=== PATIENT | female | born 1990 | race Two or more races ===

== ENCOUNTER 2020-06-11 01:52 | Emergency (ER) | payer MEDICAID ==
[~2020-06-11] VITALS: Ht 167.6 cm; Wt 62.9 kg
[~2020-06-11 01:52] MED LIST: IBUP-1222 PO; OXYC-302 PO; PREN1TAB69 PO
--- NOTE | 2020-06-11 03:03 | NUR ---
PT STATES TOOTH PAIN IN BOTTOM RIGHT OF MOUTH BEGAN 2 WEEKS AGO, PT WENT TO URGENT CARE AND GOT ABX. FINISHED THAT COURSE THEN PAIN RETURNED, PT WENT BACK TODAY AND RECEVIED ADDITIONAL ABX SCRIPT BUT NOW PAIN IS WORSENING AND FEELS LIKE ITS SPREADING TO THE TOP OF HER MOUTH. PT STATES SHE HAS A DENTIST APPT ON THE . DENIES VISION CHANGES OR SWELLING ON RIGHT SIDE. NAD. PT PLACED ON SPO2/BP MONITORING. VSS. WCTM. WAITING ERP EVAL.
[2020-06-11 03:06] VITALS: BP 139/64
--- NOTE | 2020-06-11 03:33 | NUR ---
Patient given discharge instructions and they have confirmed that they understand the instructions. Patient ambulatory with steady gait. Denies additional questions or needs at this time. NAD, VSS. all belongings left with pt at time of dc.
== END 2020-06-11 03:42 | disposition home or self-care (01) ==
LOC: ED 03:10
DX: K08.89 Other specified disorders of teeth and supporting structures (principal)
CPT/HCPCS: 99283